=== PATIENT | female | born 1960 | race Caucasian/White ===

== ENCOUNTER 2017-10-15 00:23 | Observation (INO) | payer OTHER, SELFPAY ==
[~2017-10-15] VITALS: Ht 162.6 cm; Wt 45.0 kg
[2017-10-15 00:56] LABS: ALANINE AMINOTRANSFERASE 32 U/L (12-78); ANION GAP 6 mmol/L (5-15); CALCIUM 9.1 mg/dL (8.5-10.1); CHLORIDE 110 mmol/L (98-107); CREATININE 0.83 mg/dL (0.55-1.02); SALICYLATE LEVEL 3.8 mg/dL (2.8-20.0)
[2017-10-15 00:58] LABS: ALKALINE PHOSPHATASE 76 U/L (45-117); BILIRUBIN,TOTAL 0.8 mg/dL (0.2-1.0); TOTAL PROTEIN 7.2 g/dL (6.4-8.2)
[2017-10-15 00:59] LABS: ACETAMINOPHEN < 2 mcg/mL (10-30)
[2017-10-15 01:11] LABS: BASOPHILS # (AUTO) 0.02 x10^3/uL (0-0.1); BASOPHILS % (AUTO) 0 % (0-1); EOSINOPHILS # (AUTO) 0.03 x10^3/uL (0-0.4); EOSINOPHILS % (AUTO) 0 % (1-7); LYMPHOCYTES # (AUTO) 2.01 x10^3/uL (1-3.4); LYMPHOCYTES % (AUTO) 18 % (22-44); MD NO; MEAN CORPUSCULAR HEMOGLOBIN 30.9 pg (27.0-34.8); MEAN CORPUSCULAR HGB CONC 33.5 g/dL (32.4-35.8); MEAN CORPUSCULAR VOLUME 92.3 fL (80-100); MEAN PLATELET VOLUME 7.9 fL (7.4-10.4); MONOCYTES # (AUTO) 0.75 x10^3/uL (0.2-0.8); MONOCYTES % (AUTO) 7 % (2-9); NEUTROPHILS # (AUTO) 8.59 x10^3/uL (1.8-6.8); NEUTROPHILS % (AUTO) 75 % (42-75); PLATELET COUNT 262 x10^3/uL (130-400); RED BLOOD COUNT 5.44 x10^6/uL (3.82-5.3); RED CELL DISTRIBUTION WIDTH 12.5 % (9.6-15.2)
[2017-10-15 02:11] LABS: CULTURE INDICATED? YES; MICROSCOPIC INDICATED
[2017-10-15 02:23] LABS: AMPHETAMINE SCREEN, URINE Negative (Negative); BARBITURATE SCREEN, URINE Negative (Negative); BENZODIAZEPINE SCREEN, URINE Positive (Negative); CANNABINOID SCREEN, URINE Negative (Negative); COCAINE SCREEN, URINE Negative (Negative); METHADONE SCREEN, URINE Negative (Negative); OPIATE SCREEN, URINE Negative (Negative)
[2017-10-15] MEDS ORDERED: CEFDINIR 300 MG CAPSULE ONE (03:53)
[2017-10-15] MEDS ORDERED: CEFDINIR 300 MG CAPSULE PO ONE (04:00)
[2017-10-15] MEDS ORDERED: ONDANSETRON ODT 4 MG PO PRN (07:30)
[2017-10-15 07:44] LABS: FREE T4 (FREE THYROXINE) 1.08 ng/dL (0.76-1.46); THYROID STIMULATING HORMONE 0.196 mIU/L (0.358-3.740)
[2017-10-15 08:08] VITALS: BP 114/57
[2017-10-15] MEDS: CEFDINIR 300 MG CAPSULE PO SCH ×2 (09:21→20:33)
[2017-10-15] MEDS ORDERED: ZOLPIDEM 10MG TABLET PO PRN (17:00)
[2017-10-15] MEDS ORDERED: ZOLPIDEM 5MG TABLET ONE (20:32)
[2017-10-15 20:34] VITALS: BP 111/66
[2017-10-15] MEDS: LORazepam 1MG TABLET PO PRN (22:12)
[2017-10-16] MEDS: OXYcodone/APAP 7.5/325MG TABLET PO PRN ×4 (05:50→18:59)
[2017-10-16 05:59] LABS: BASOPHILS # (AUTO) 0.05 x10^3/uL (0-0.1); BASOPHILS % (AUTO) 1 % (0-1); EOSINOPHILS # (AUTO) 0.04 x10^3/uL (0-0.4); EOSINOPHILS % (AUTO) 1 % (1-7); LYMPHOCYTES # (AUTO) 2.12 x10^3/uL (1-3.4); LYMPHOCYTES % (AUTO) 28 % (22-44); MD NO; MEAN CORPUSCULAR HEMOGLOBIN 31.5 pg (27.0-34.8); MEAN CORPUSCULAR HGB CONC 34.2 g/dL (32.4-35.8); MEAN PLATELET VOLUME 7.6 fL (7.4-10.4); MONOCYTES # (AUTO) 0.54 x10^3/uL (0.2-0.8); MONOCYTES % (AUTO) 7 % (2-9); NEUTROPHILS # (AUTO) 4.96 x10^3/uL (1.8-6.8); NEUTROPHILS % (AUTO) 64 % (42-75); PLATELET COUNT 231 x10^3/uL (130-400); RED BLOOD COUNT 4.73 x10^6/uL (3.82-5.3); RED CELL DISTRIBUTION WIDTH 12.6 % (9.6-15.2)
[2017-10-16 06:03] LABS: CHLORIDE 111 mmol/L (98-107)
[2017-10-16 06:11] LABS: ALANINE AMINOTRANSFERASE 24 U/L (12-78); ALBUMIN 3.2 g/dL (3.4-5.0); ALKALINE PHOSPHATASE 66 U/L (45-117); ANION GAP 7 mmol/L (5-15); BILIRUBIN,TOTAL 0.7 mg/dL (0.2-1.0); CALCIUM 8.7 mg/dL (8.5-10.1); TOTAL PROTEIN 5.8 g/dL (6.4-8.2)
[2017-10-16 08:09] VITALS: BP 97/61
[2017-10-16] MEDS: CEFDINIR 300 MG CAPSULE PO SCH ×2 (09:00→20:45)
[2017-10-16] MEDS: LORazepam 1MG TABLET PO PRN ×2 (14:12→22:38)
[2017-10-16 19:41] VITALS: BP 103/61
[2017-10-16] MEDS ORDERED: ZOLPIDEM 5MG TABLET ONE (20:44)
[2017-10-16] MEDS: ZOLPIDEM 5MG TABLET PO PRN (20:48)
[2017-10-17] MEDS: OXYcodone/APAP 7.5/325MG TABLET PO PRN ×3 (05:42→17:54)
[2017-10-17] MEDS: CEFDINIR 300 MG CAPSULE PO SCH ×2 (08:24→20:40)
[2017-10-17 08:25] VITALS: BP 103/67
[2017-10-17] MEDS: LORazepam 1MG TABLET PO PRN ×2 (08:30→22:02)
[2017-10-17 19:50] VITALS: BP 107/67
[2017-10-17] MEDS: ZOLPIDEM 5MG TABLET PO PRN (20:44)
[2017-10-18] MEDS: OXYcodone/APAP 7.5/325MG TABLET PO PRN (06:38)
[2017-10-18 08:00] VITALS: BP 105/65
[2017-10-18] MEDS: CEFDINIR 300 MG CAPSULE PO SCH (08:25)
[2017-10-18] MEDS: LORazepam 1MG TABLET PO PRN (08:35)
[2017-10-18] MEDS ORDERED: CEFD300C37 PO (10:54)
== END 2017-10-18 11:45 | disposition home or self-care (01) ==
LOC: ED 01:22 → EDIP 04:39 → 2N 07:55
PROVIDERS: ADMIT Internal Medicine; ATTEND Internal Medicine
DX: R45.851 Suicidal ideations (principal); R45.850 Homicidal ideations; N39.0 Urinary tract infection, site not specified; F17.210 Nicotine dependence, cigarettes, uncomplicated; D72.829 Elevated white blood cell count, unspecified
CPT/HCPCS: 36415; 80053; 80307; 80329; 81001; 84439; 84443; 85025; 87086; 99285; G0378; G0480